=== PATIENT | female | born 1945 | race Caucasian/White ===

== ENCOUNTER 2017-11-24 20:07 | Emergency (ER) | payer OTHER ==
[~2017-11-24] VITALS: Ht 149.9 cm; Wt 50.6 kg
[2017-11-24 20:12] VITALS: BP 161/69; PULSE 83; RESP 18; TEMP 98.1; O2SAT 97
[2017-11-24] MEDS ORDERED: LEVO75TA3 PO (20:19)
--- NOTE | 2017-11-24 20:47 | PD ---
HPI . Fall Chief Complaint: Fall Time Seen by Provider: 20:17 Travel History International Travel<30 days: No Contact w/Intl Traveler<30days: No Traveled to known affect area: No History of Present Illness HPI This patient presents with a chief complaint of a fall. It was a trip and fall that occurred a couple of hours ago. She states that she went to urgent care and they saw the injury to her forehead and instructed her to come to the emergency department. She denies loss of consciousness. She does not take an anticoagulant. She reports no signs or symptoms of a head injury currently. Specifically, no blurred vision, no dizziness, no vomiting and no confusion. In addition to the injury to her forehead, she has suffered a laceration to her upper lip, a chipped tooth and an injury to her right wrist. Her symptoms are very mild and she rates them 2/10. They have been continuous since the fall a few hours ago. She is unsure of her last tetanus shot. PFS Past Medical History Thyroid Disease: Yes ?: Not Past Surgical History Tonsillectomy: Yes Social History Alcohol Use: Yes Tobacco Use: No Substance Use: No Allergies-Medications (Allergen,Severity, Reaction): Coded Allergies: No Known Allergies (Verified Allergy, Unknown, 11/24/17) Reported Meds & Prescriptions Reported Meds & Active Scripts Active Reported Levothyroxine (Levothyroxine Sodium) 75 Mcg Tab 75 Mcg PO DAILY Review of Systems Except as stated in HPI: all other systems reviewed are Neg Physical Exam Narrative GENERAL: Awake and alert and in no acute distress. SKIN: Warm and dry. She has a mild contusion/abrasion to the right side of the forehead. She has a minor lip laceration of the upper lip which involves only the mucosa and which is not gaping. She has some bruising to the thenar eminence of the right hand. HEAD: Normocephalic/atraumatic. EYES: Pupils are equal. Extraocular movements are intact. ENT: Chipped left upper central incisor. Nontender. NECK: Normal range of motion. Nontender. RESPIRATORY: Nonlabored respirations. MUSCULOSKELETAL: She has the bruising of the thenar eminence of the right hand but she has full range of motion of her wrist and no significant tenderness to palpation. NEUROLOGICAL: Nonfocal. PSYCHIATRIC: Appropriate mood and affect. Data Data Last Documented VS Vital Signs Date Time Temp Pulse Resp B/P (MAP) Pulse Ox O2 Delivery O2 Flow Rate FiO2 11/24/17 20:12 98.1 83 18 161/69 (99) 97 MDM Medical Decision Making Medical Screen Exam Complete: Yes Emergency Medical Condition: Yes Differential Diagnosis My differential diagnosis of head trauma includes but is not limited to scalp contusion, concussion, intracerebral hemorrhage. Differential diagnosis includes but is not limited to skin laceration, muscular laceration, tendon laceration, neurovascular laceration. Differential diagnosis of extremity trauma includes but is not limited to fracture, sprain or strain, dislocation, contusion Narrative Course This patient presents for the evaluation of injury sustained in a trip and fall. She struck her forehead but denies loss of consciousness, use of anticoagulants or subsequent signs or symptoms of a head injury. She also has a laceration to her upper lip. The laceration is small and does not cross the vermilion border. It is not in need of repair. She has a chipped right upper central incisor. It is not at all painful to her. She has a contusion to the thenar eminence of the right hand but no evidence of fracture such as deformity, pain with movement, tenderness to palpation. This patient's tetanus shot will be updated and she will be discharged home. She will call her dentist tomorrow. Diagnosis Primary Impression: Forehead contusion Qualified Codes: S00.83XA - Contusion of other part of head, initial encounter Additional Impressions: Lip laceration Qualified Codes: S01.511A - Laceration without foreign body of lip, initial encounter Fractured tooth Qualified Codes: S02.5XXA - Fracture of tooth (traumatic), initial encounter for closed fracture Hand contusion Qualified Codes: S60.221A - Contusion of right hand, initial encounter Disposition: DISCHARGE HOME Condition: Stable Claire Eid MD Nov 24, 2017 20:47
[2017-11-24] MEDS ORDERED: TETANUS/DIPHTHERIA TOXOID ADULT 0.5 ML VIAL IM ONE (21:00)
== END 2017-11-24 21:26 | disposition home or self-care (01) ==
LOC: PHEFT 20:07
DX: S00.83XA Contusion of other part of head, initial encounter (principal); S01.511A Laceration without foreign body of lip, initial encounter; S02.5XXA Fracture of tooth (traumatic), initial encounter for closed fracture; S60.221A Contusion of right hand, initial encounter; W22.8XXA Striking against or struck by other objects, initial encounter; E07.9 Disorder of thyroid, unspecified; W01.0XXA Fall on same level from slipping, tripping and stumbling without subsequent striking against object, initial encounter; Z79.899 Other long term (current) drug therapy; Z23 Encounter for immunization
CPT/HCPCS: 90471; 90714